=== PATIENT | male | born 1930 | race Caucasian/White ===

== ENCOUNTER 2016-10-26 20:02 | Emergency (ER) | payer MEDICARE, BC ==
[2016-10-26] MEDS ORDERED: FENTANYL 250 MCG/5 ML VIAL ONE (20:17)
[2016-10-26] MEDS ORDERED: FENTANYL 100 MCG/2 ML VIAL ONE ×2 (20:20→21:17)
[2016-10-26] MEDS ORDERED: KETAMINE HCL 500 MG/10 ML VIAL ONE (22:06)
--- NOTE | 2016-10-27 00:40 | ER PHYSICIAN DOCUMENTATION ---
Physician Documentation [facility] Name:Migel Hernández Age:86 yrs Sex:Male :1930 Arrival Date:10/26/2016 Time:19:57 BedTrauma A Private MD: Jus Man Disposition: 10/26/16 22:30 Discharged to Home/Self Care. Impression: Dislocation of Hip. - Condition is Good. - Discharge Instructions: dislocation reduction - HIP DISLOCATION, Traumatic, (Reduced). - Medical Reconciliation form form. - Follow up: Danny Ray MD; When: 4- 6 days; Reason: Recheck today's complaints. - Problem is new. - Symptoms have improved. HPI: 10/26 20:00 This 86 yrs old Male presents to ER via EMS with complaints of Hip Injury - jm Right. 20:00 The patient or guardian reports possible dislocation. sustained from bending over. The jm complaints affect the right hip. Onset: The symptom(s)/episode began/occurred just prior to arrival. Modifying factors: the symptoms are aggravated by any movement. Associated signs and symptoms: Pertinent negatives: dizziness. Severity of symptoms: in the emergency department the symptoms are unchanged. The patient has experienced a previous episode. The patient has not recently seen a physician. Historical: - Allergies: Lidocaine; novicaine; Soy protein sensitivity; - Home Meds: 1. testosterone daily 2. finasteride oral - PMHx: BPH; thoracic aneurysm; left knee due for surgery; Dislocation of Hip (June 19, 2016); - PSHx: Right hip replaced; HERNIA REPAIR; both eyes; - Tetanus: unknown. - Ebola Screening: : No symptoms or risks identified at this time. . - Immunization history: Flu Vaccine unknown. - Social history: Smoking status: Patient states former smoker of tobacco. Patient uses alcohol occasionally. ROS: 20:00 MS/extremity: Positive for injury or acute deformity, decreased range of motion, pain. jm 20:00 Skin: Negative for puncture, swelling. 20:00 Neuro: Negative for numbness, tingling. 20:00 All other systems are negative. Exam: 20:00 Constitutional: The patient appears alert, awake, comfortable. jm 20:00 Eyes: Periorbital structures: appear normal, Conjunctiva: normal. 20:00 ENT: Mouth: is normal, Posterior pharynx: Airway: normal, swelling, is not appreciated, Voice: is normal. 20:00 Chest/axilla: Inspection: normal, Palpation: is normal. 20:00 Cardiovascular: Rate: normal, Rhythm: regular, Pulses: no pulse deficits are appreciated. 20:00 Respiratory: Respirations: normal, Breath sounds: are normal. 20:00 Abdomen/GI: Bowel sounds: normal, Palpation: abdomen is soft and non-tender. 20:00 Musculoskeletal/extremity: Extremities: grossly normal except: R hip flexed, shortened, and internally rotated. Normal CMS, Circulation is intact in all extremities. 20:00 Skin: Appearance: Color: pink, lesion(s), are not present. 20:00 Neuro: Mentation: is normal, Memory: is normal. 20:00 Psych: Behavior/mood is pleasant, cooperative, Affect is calm. Vital Signs: 20:04 BP 149 / 84; Pulse 62; Resp 14; Temp 98.0; Pulse Ox 94% on R/A; Weight 74.39 kg; Height az 6 ft. 4 in. (193.04 cm); Pain 5/10; 21:10 BP 142 / 70; Pulse 58; Pulse Ox 97% on 2 lpm NC; ma 21:15 BP 110 / 73; Pulse 82; Resp 29; Pulse Ox 94% on 4 lpm NC; mk4 21:20 BP 111 / 76; Pulse 101; Resp 21; Pulse Ox 94% on 4 lpm NC; mk4 21:27 BP 135 / 73; Pulse 59; Pulse Ox 96% on 2 lpm NC; ma 21:30 BP 103 / 62; Pulse 97; Resp 20; Pulse Ox 93% on 2 lpm NC; mk4 21:45 BP 123 / 72; Pulse 62; Resp 14; Pulse Ox 98% on 2 lpm NC; ma 22:15 BP 122 / 68; Pulse 65; Resp 10; Pulse Ox 90% on 2 lpm NC; Pain 0/10; mk4 22:30 BP 120 / 68; Pulse 62; Resp 14; Pulse Ox 88% on 2 lpm NC; Pain 1/10; mk4 23:00 BP 126 / 72; Pulse 79; Resp 14; Pulse Ox 94% 2 lpm ; Pain 0/10; mk4 10/27 00:20 BP 119 / 74; Pulse 64; Resp 17; Temp 98.4; Pulse Ox 96% on R/A; Pain 1/10; mk4 10/26 20:04 Body Mass Index 19.96 (74.39 kg, 193.04 cm) az Procedures: 10/26 20:00 Reduction: of the right hip, using traction, manipulation, Patient tolerated well. Post reduction film - reveals normal alignment. MDM: 20:00 Differential diagnosis: hip dislocation. Data reviewed: vital signs, nurses notes, radiologic studies, and as a result, I will discharge patient. Test interpretation: by ED physician or midlevel provider: plain radiologic studies. Counseling: I had a detailed discussion with the patient and/or guardian regarding: the historical points, exam findings, and any diagnostic results supporting the discharge/admit diagnosis, radiology results, the need for outpatient follow up, a orthopedic surgeon. Response to treatment: the patient's symptoms have resolved after treatment. ED course: SAL Leach came into to anesthesia w/o issue. Hip went back in easily. Pt ambulated and was DC'd home. . 20:05 Patient medically screened. 10/26 20:07 Order name: Iv Saline Lock; Complete Time: 20:15 10/26 20:07 Order name: Consent form signed (); Complete Time: 21:52 10/26 20:07 Order name: Continuous Cardiac Monitoring; Complete Time: 20:15 10/26 20:07 Order name: I & O; Complete Time: 21:52 10/26 20:07 Order name: NPO; Complete Time: 20:15 10/26 20:07 Order name: Oxygen; Complete Time: 20:15 10/26 20:07 Order name: Pulse Ox Continuous; Complete Time: 20:15 10/26 20:07 Order name: Vital Signs q 5 mins.; Complete Time: 20:15 10/26 20:07 Order name: Call J[employer]IOR [employer] ADMINISTRATOR to ED; Complete Time: 20:19 Dispensed Medications: 20:14 Drug: fentaNYL (PF) 150 mcg; Route: IVP; Rate: per protocol; Infused Over: 3 mins; az Site: left hand; 21:03 Follow up: Response: Pain is decreased az 20:30 Drug: NS 0.9% 1000 ml; Route: IV; Rate: 150 ml/hr; Site: left hand; Delivery: Pump; ma 10/27 00:21 Follow up: IV Status: Completed infusion; Infusion discontinued; IV Intake: 450ml mk4 10/26 21:11 Drug: fentaNYL (PF) 100 mcg; Route: IVP; Rate: per protocol; Infused Over: 3 mins; ma Site: left hand; 21:50 Follow up: Response: Pain is decreased ma 21:20 Drug: Ketamine 0.5 mg/kg; {Note: Given by anesthesia.} Route: IVP; Rate: 0.5 bolus; mk4 Infused Over: 2 mins; Site: left forearm; 10/27 00:33 Follow up: Response: No adverse reaction mk4 10/26 21:20 Drug: Propofol 0.5 mg/kg; {Note: given by anesthesia.} Route: IVP; Rate: 0.5 per mk4 protocol; Infused Over: 2 mins; Site: left forearm; 10/27 00:33 Follow up: Response: No adverse reaction mk4 Signatures: Елена Cole RN RN ma Meyer, John, MD MD jm King, Melody 4
--- NOTE | 2016-10-27 00:40 | ER NURSING DOCUMENTATION ---
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 Transition of care: Home. 20:01 Acuity: SUHA 3 ma 20:01 Method Of Arrival: EMS: 410 ma Triage Assessment: 20:04 General: Appears uncomfortable, well developed, well nourished, well groomed, Behavior ma is cooperative. Pain: Complains of pain in right hip. Musculoskeletal: Bony deformity noted of right gluteus jr. Injury Description: Deformity was sustained less than 30 minutes ago. Historical: - Allergies: Lidocaine; novicaine; Soy protein sensitivity; - Home Meds: 1. testosterone daily 2. finasteride oral - PMHx: BPH; thoracic aneurysm; left knee due for surgery; Dislocation of Hip (June 19, 2016); - PSHx: Right hip replaced; HERNIA REPAIR; both eyes; - Tetanus: unknown. - Ebola Screening: : No symptoms or risks identified at this time. . - Immunization history: Flu Vaccine unknown. - Social history: Smoking status: Patient states former smoker of tobacco. Patient uses alcohol occasionally. Screenin:06 Infectious Disease Risk None. Abuse screen: Denies threats or abuse. Nutritional id screening: No deficits noted. Assessment: 21:00 See Triage Assessment done by same RN. mk4 Vital Signs: 20:04 BP 149 / 84; Pulse 62; Resp 14; Temp 98.0; Pulse Ox 94% on R/A; Weight 74.39 kg; Height id 6 ft. 4 in. (193.04 cm); Pain 5/10; 21:10 BP 142 / 70; Pulse 58; Pulse Ox 97% on 2 lpm NC; ma 21:15 BP 110 / 73; Pulse 82; Resp 29; Pulse Ox 94% on 4 lpm NC; mk4 21:20 BP 111 / 76; Pulse 101; Resp 21; Pulse Ox 94% on 4 lpm NC; mk4 21:27 BP 135 / 73; Pulse 59; Pulse Ox 96% on 2 lpm NC; ma 21:30 BP 103 / 62; Pulse 97; Resp 20; Pulse Ox 93% on 2 lpm NC; mk4 21:45 BP 123 / 72; Pulse 62; Resp 14; Pulse Ox 98% on 2 lpm NC; ma 22:15 BP 122 / 68; Pulse 65; Resp 10; Pulse Ox 90% on 2 lpm NC; Pain 0/10; mk4 22:30 BP 120 / 68; Pulse 62; Resp 14; Pulse Ox 88% on 2 lpm NC; Pain 1/10; mk4 23:00 BP 126 / 72; Pulse 79; Resp 14; Pulse Ox 94% 2 lpm ; Pain 0/10; mk4 10/27 00:20 BP 119 / 74; Pulse 64; Resp 17; Temp 98.4; Pulse Ox 96% on R/A; Pain 1/10; mk4 10/26 20:04 Body Mass Index 19.96 (74.39 kg, 193.04 cm) ma ED Course: 10/26 19:57 Patient arrived in ED. em3 19:57 Oxygen Oxygen administration via nasal cannula @ 3L/min. ma 20:01 Елена Cole, RN is Primary Nurse. ma 20:02 Triage completed. ma 20:05 Jus Patel MD is Attending Physician. 20:06 Valuables Remains with patient Patient has correct armband on for positive ma identification. Bed in low position. Call light in reach. Side rails up X2. 20:06 Cardiac Monitoring On for Nurse Monitoring only. Pulse Ox - RN Monitoring Only NIBP On mk4 - RN Monitoring Only. 20:08 Family accompanied patient. mk4 20:11 Port Xray Completed. tanya 21:15 Procedure consent explained by physician, signed by patient. mk4 21:15 Assist Provider Assist provider with reduction of right pathologic or non traumatic hip mk4 using manipulation, Performed by Jus Patel MD Patient tolerated well. 21:35 Portable x-ray done. mk4 21:52 Report given to Chilo NAJERA. jamir 22:29 Danny Ray MD is Referral Physician. maya 10/27 00:37 Inserted peripheral IV: 20 gauge in right forearm and blood collected. Discontinued IV mk4 intact, bleeding controlled, pressure dressing applied, No redness/swelling at site. M. Sedation: 10/26 21:12 Intra-procedure:. ma 21:15 Pre-procedure: Name of procedure: Hip reduction/ dislocation The physician performing mk4 procedure is the same physician who will be administering the sedation, Jus Patel MD Sedation Score Active motion (2 points) Maintains airway by self (1 point) Fully awake (2 points) [place]/normal (2 points) BP +/- 20% of pre sedation value (2 points) Reviewed instructions and expectations with patient, patient's , Has had drug/anesthesia reactions to States has " low BP " during procedures. and anechristiano aware. Patient has been NPO for 4 hours. Reviewed patient's current meds list. engine monitor on. Cardiac rhythm Sinus rhythm Pulse ox on. Oxygen via nasal cannula @ 4L/min. Intra-procedure: Sedation began at 21:20. Provider left patient's bedside at 21:30. Intra-procedure Time: 1-15 minutes Patient response: skin warm/dry, obeys commands, resps even/unlabored, IV patent. Post-procedure: Procedure ended at 21:25. Sedation Score Active motion (2 points) Able to cough/deep breath (2 points) Fully awake (2 points) [place]/normal (2 points) BP +/- 20% of pre sedation value (2 points). Administered Medications: 20:14 Drug: fentaNYL (PF) 150 mcg; Route: IVP; Rate: per protocol; Infused Over: 3 mins; ma Site: left hand; 21:03 Follow up: Response: Pain is decreased id 20:30 Drug: NS 0.9% 1000 ml; Route: IV; Rate: 150 ml/hr; Site: left hand; Delivery: Pump; id 10/27 00:21 Follow up: IV Status: Completed infusion; Infusion discontinued; IV Intake: 450ml mk4 10/26 21:11 Drug: fentaNYL (PF) 100 mcg; Route: IVP; Rate: per protocol; Infused Over: 3 mins; ma Site: left hand; 21:50 Follow up: Response: Pain is decreased id 21:20 Drug: Ketamine 0.5 mg/kg; {Note: Given by anesthesia.} Route: IVP; Rate: 0.5 bolus; mk4 Infused Over: 2 mins; Site: left forearm; 10/27 00:33 Follow up: Response: No adverse reaction 4 10/26 21:20 Drug: Propofol 0.5 mg/kg; {Note: given by anesthesia.} Route: IVP; Rate: 0.5 per mk4 protocol; Infused Over: 2 mins; Site: left forearm; 10/27 00:33 Follow up: Response: No adverse reaction mk4 Intake: 00:14 PO: 250ml; IV: 450ml; Total: 700ml. mk4 00:21 IV: 450ml; Total: 1150ml. mk4 Output: 00:14 Urine: 400ml; Total: 400ml. mk4 Outcome: 10/26 22:30 Discharge ordered by . maya 10/27 00:20 Discharged to home ambulatory, via wheelchair. mk4 Condition: good Discharge Assessment: Patient awake, alert and oriented x 3. No cognitive and/or functional deficits noted. Patient verbalized understanding of disposition instructions. Discharge instructions given to patient, significant other, Instructed on discharge instructions, follow up and referral plans. Demonstrated understanding of instructions. 00:21 IV D/Chalo mk4 00:39 Patient left the ED. mk4 Signatures: Елена Cole, Jus Garcia RN, ma, MD MD jm Abbott, Laura lea Meiklejohn, Janet Helton 4
--- NOTE | 2016-10-29 10:45 | RADIOLOGY REPORT ---
Initial oblique view of the right hip demonstrates distal right hip replacement with dislocation of the femoral component relative to the acetabulum. No fracture is identified on this limited view. A second view of the right hip at 2224 hours demonstrates interval reduction. No new abnormality is identified. IMPRESSION: Dislocated right total hip with subsequent reduction. MTDD
== END 2016-10-27 00:40 | disposition home or self-care (01) ==
LOC: ER 20:02
DX: T84.020A Dislocation of internal right hip prosthesis, initial encounter (principal); Z96.641 Presence of right artificial hip joint; W19.XXXA Unspecified fall, initial encounter; Z79.899 Other long term (current) drug therapy
CPT/HCPCS: 27250; 96361; 96374; 96375; 96376; 99285